=== PATIENT | male | born 1960 | race Caucasian/White ===

== ENCOUNTER 2016-06-08 12:47 | Emergency (ER) | payer SELFPAY ==
[2016-06-08 14:02] VITALS: BMI 25.9
[2016-06-08 14:03] VITALS: TEMP 98.3
[2016-06-08 14:35] VITALS: BP 132/82; PULSE 104
--- NOTE | 2016-06-08 14:39 | EDPRACDOC ---
- General Information Chief Complaint: Back Injury Stated Complaint: SICK; FALL Time Seen by Provider: 06/08/16 14:34 Information Source: Patient Mode Of Arrival: Car Home Medications: Home Medications Ibuprofen 600 mg PO TID #20 tablet 11/08/15 Mupirocin Calcium [Bactroban] 15 gm TP BID #1 tube 11/08/15 Sulfamethoxazole/Trimethoprim [Bactrim Ds Tablet] 1 tab PO BID #14 tab 11/08/15 Cyclobenzaprine HCl [Flexeril] 10 mg PO TID PRN #15 tablet 02/22/16 Hydrocodone Bit/Acetaminophen [Lortab 5/325] 1 tab PO Q6H PRN #10 tab 02/22/16 Ibuprofen 800 mg PO TID PRN #30 tablet 02/22/16 Azithromycin [Zithromax] 0 mg PO DAILY #6 tablet 06/08/16 Cyclobenzaprine HCl [Flexeril] 10 mg PO TID PRN #20 tablet 06/08/16 Hydrocodone Bit/Acetaminophen [Hydrocodon-Acetaminophen 5-325] 1 tab PO Q6 PRN # 15 tab 06/08/16 Prednisone [Deltasone, Orasone] 40 mg PO DAILY 5 Days 06/08/16 Promethazine Dextromethorphan [Phenergan DM] 5 ml PO Q6 PRN #120 ml 06/08/16 Allergies/Adverse Reactions: Allergies Allergy/AdvReac Type Severity Reaction Status Date / Time No Known Allergies Allergy Verified 06/08/16 14:02 - History of Present Illness Onset: YEST HPI: PT STATES SLIPPED ON ICE YESTERDAY, FELL BACKWARDS, COMPLAINS OF SHARP, STABBING LOWER BACK PAIN, NON-RADIATING, WORSE WITH TWISTING/BENDING, NO BOWEL OR BLADDER DYSFUNCTION. PT ALSO COMPLAINS OF BEING "SICK" X 3 DAYS WITH NON- PROD COUGH, CONGESTION, SORE THROAT, NO FEVER OR CHILLS, NO MEDS TAKEN FOR ANY SYMPTOMS. Pain Location: Reports: Bilateral, Lower, Lumbar Pain Radiates To: Reports: None Pain Caused By: Reports: Blunt Trauma Circumstances: Reports: Fall Relevant History: Reports: Chronic back pain Pain Severity: Reports: Severe Pain Quality: Reports: Sharp, Stabbing Worsened By: Reports: Movement, Twisting, Walking Associated Signs and Symptoms: Denies: Abdominal Pain, Dysuria, Hematuria, Nausea, Vomiting ED Past Medical History - History Reviewed Yes Nurses notes reviewed and agree except as marked - Patient Medical History Respiratory History: Reports: COPD Musculoskeletal History: Reports: Arthritis Psychological History: Denies: Depression Additional Past Medical History: CHRONIC PAIN SYNDROMES / CHRONIC BACK PAIN Surgical History: Reports: Other (back surgery right ankle fusion) - Social Medical History Smoking Status: Heavy tobacco smoker (5 or more cigarettes/day or daily pipe/ cigar) ETOH: None Substance Abuse: None EDM Review of Systems - Review of Systems Constitutional: Fatigue, Weakness. negative: Chills, Fever Eyes: negative: Blurred Vision, Double Vision Ears: negative: Drainage Throat: Pain Nose: Congestion, Discharge Respiratory: Cough, Wheezing. negative: Shortness of Breath Cardiovascular: negative: Chest Pain, Palpitations Gastrointestinal: negative: Diarrhea, Nausea, Pain, Vomiting Genitourinary: negative: Dysuria, Frequency Neurological: negative: Dizziness, Headache, Numbness, Vertigo Musculoskeletal: Back Integumentary: No Symptoms Reported - Physical Exam Constitutional: Alert (Awake), No apparent distress Oriented to: Time, Person, Place Last recorded Vital Signs: Last Vital Signs Temp 98.3 F 06/08/16 14:02 Pulse 104 06/08/16 14:34 Resp 20 06/08/16 14:34 BP 132/82 06/08/16 14:34 Pulse Ox 94 06/08/16 14:34 Oxygen Pulse Oxygen Saturation 94 O2 Device Room Air Oxygen Flow Rate Fraction of Inspired Oxygen ( FIO2) - HEENT Head: Normal ( normocephalic) Eye Exam: Normal (PERRL, EOMI, Sclera white) Oropharynx: Normal (Pharynx:Moist without exudate,Gums-no swelling) Tympanic Membrane: Normal ENT EAC: Normal TMJ: Normal Nose: No Symptoms Reported (septum midline) Neck: Normal (FROM, trachea at midline) - Respiratory/Cardiovascular Respiratory: Wheezes. negative: Accessory Muscle Use, Retractions Cardiovascular: Normal (RRR without murmur, gallop or rub) - GI Auscultation: Normal (NABS) Palpation: Normal (Soft,No rebound or guarding, non distended) Tenderness: Non tender Mcgarry's Sign: Negative - Musculoskeletal Back: Normal (Non-Tender) Extremities: Normal (Normal tone, Pulses 2+ No cyanosis or edema, FROM) - Integumentary Skin: Normal, Warm, Dry Lymphatics: Normal (no adenopathy) - Neurologic Memory Impaired: Normal Motor Function: Normal (Normal tone, Pulses 2+ No cyanosis or edema, FROM) Cranial Nerve: Normal (CN II-X11 intact sensation, strength 5/5) Cerebellar: Normal Mood Description: Normal Perception: Normal ED Back Exam - Neurologic Motor Deficit: None - Musculoskeletal Cervical: Normal Thoracic: Normal Lumbar: Tender Midline: Tender Paraspinous: Tender Straight Leg Raise: Negative Pelvis: Normal - Differential Diagnosis DJD, HNP, Musculoskeletal pain, Strain - Diagnostic Imaging L-S SPINE Image interpreted by: Radiologist LUMBAR SPINE - COMPLETE 4+ VIEW COMPARISON: Radiographs 02/22/2016 and 05/26/2013. FINDINGS: There is transitional lumbosacral anatomy. Numbering applied to previous studies is utilized for this examination with the last open disc space assigned L5-S1. As numbered, there are small ribs at L1. Patient is status post L5-S1 PLIF. The hardware is intact. The alignment is normal. Disc space loss at L3-4 is unchanged. No evidence of acute fracture or pars defect. There is diffuse aortoiliac atherosclerosis. IMPRESSION: Intact hardware and stable alignment status post lower lumbar fusion. No acute osseous findings. Decision Time to Discharge: 15:50 - Departure Disposition: Home Condition: Stable Final Diagnosis: Acute low back pain Qualifiers: Back pain laterality: bilateral Sciatica presence: without sciatica Qualified Code(s): M54.5 - Low back pain Acute bronchitis Qualifiers: Bronchitis organism: unspecified organism Qualified Code(s): J20.9 - Acute bronchitis, unspecified Instructions: Acute Low Back Pain (ED) Education/Counseling Given To: Patient Education/Counseling Given Regarding: Diagnosis, Treatment, Prognosis, Follow Up Referrals: Matt Welsh MD [Staff Physician] - One Week Prescriptions: Azithromycin [Zithromax] 0 mg PO DAILY #6 tablet Cyclobenzaprine HCl [Flexeril] 10 mg PO TID PRN #20 tablet PRN Reason: Muscle Spasms Hydrocodone Bit/Acetaminophen [Hydrocodon-Acetaminophen 5-325] 1 tab PO Q6 PRN # 15 tab PRN Reason: Pain Prednisone [Deltasone, Orasone] 40 mg PO DAILY 5 Days Promethazine Dextromethorphan [Phenergan DM] 5 ml PO Q6 PRN #120 ml PRN Reason: Cough Additional Instructions: Rest, drink plenty of fluids, use Tylenol every 4 hours and Motrin every 6 hours as needed for pain or fever, return to the ED for any worsening symptoms or concerns. Back Pain: apply warm compresses to affected area 20 mins at a time 4 - 5 times daily as needed for pain
[2016-06-08] MEDS ORDERED: KETOROLAC TROMETHAMINE 10 MG TAB PO ONE (14:40)
[2016-06-08] MEDS ORDERED: CYCLOBENZAPRINE 10 MG TAB PO ONE (14:40)
--- NOTE | 2016-06-08 15:45 | DIRPT ---
CLINICAL DATA: Low back pain since falling on ice yesterday. EXAM: LUMBAR SPINE - COMPLETE 4+ VIEW COMPARISON: Radiographs 02/22/2016 and 05/26/2013. FINDINGS: There is transitional lumbosacral anatomy. Numbering applied to previous studies is utilized for this examination with the last open disc space assigned L5-S1. As numbered, there are small ribs at L1. Patient is status post L5-S1 PLIF. The hardware is intact. The alignment is normal. Disc space loss at L3-4 is unchanged. No evidence of acute fracture or pars defect. There is diffuse aortoiliac atherosclerosis. IMPRESSION: Intact hardware and stable alignment status post lower lumbar fusion. No acute osseous findings. Electronically Signed By: Gregorio Ross M.D. On: 06/08/2016 15:43
== END 2016-06-08 16:00 | disposition home or self-care (01) ==
LOC: ED 12:47 → EDMC 16:00
DX: M54.5 Low back pain (principal); W00.0XXA Fall on same level due to ice and snow, initial encounter; J44.0 Chronic obstructive pulmonary disease with (acute) lower respiratory infection; J20.9 Acute bronchitis, unspecified; G89.4 Chronic pain syndrome; F17.200 Nicotine dependence, unspecified, uncomplicated; Z79.899 Other long term (current) drug therapy
CPT/HCPCS: 72110; 99283; J3490